=== PATIENT | female | born 1940 | race Caucasian/White ===

== ENCOUNTER 2016-11-29 14:31 | Observation (INO) ==
--- NOTE | 2016-11-29 15:24 | EKG Report ---
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
[2016-11-29] MEDS ORDERED: ASPIRIN 325 MG TABLET PO STA (15:34)
[2016-11-29] MEDS ORDERED: NITROGLYCERIN SL 0.4 MG TABLET SL PRN (15:34)
[2016-11-29] MEDS ORDERED: NITROGLYCERIN 2% OINT 1 INCH/GM PACK TOP STA (15:34)
[2016-11-29] MEDS ORDERED: ONDANSETRON 4 MG/2 ML VIAL IV PRN (15:34)
[2016-11-29] MEDS ORDERED: ENOXAPARIN 100 MG/ML SYRINGE SUBCUT STA (15:34)
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
[2016-11-29 15:50] LABS: Basophils # 0.1 10*3/uL (0.0-0.2); Basophils % 0.9 % (0.0-0.8); Eosinophils # 0.5 10*3/uL (0.0-0.87); Eosinophils % 3.7 % (0.00-10.9); Hematocrit 37.1 VOL% (35.7-47.0); Hemoglobin 12.6 GM/DL (12.0-16.0); Immature Granulocytes % 0.2 %; Immature Granulocytes Absolute 0.03 #; Lymphocytes # 5.1 10*3/uL (1.4-4.0); Mean Corpuscular Hemoglobin 34 PG (27-34); Mean Corpuscular Volume 99.7 FL (87-102); Mean Platelet Volume 11.5 FL (9.6-12.0); Monocytes % 23.6 % (1.7-12.7); Neutrophils # 3.8 10*3/uL (1.4-7.4); Neutrophils % 30.6 % (38.7-73.9); Platelet Count 190 T/CUMM (130-400); Red Blood Count 3.72 MC/CUMM (3.8-5.5); Red Cell Distribution Width 12.9 % (9.3-17.3); White Blood Count 12.5 T/CUMM (4-12)
[2016-11-29 16:01] LABS: PT Patient Result 10.4 SECS; Partial Thromboplastin Time 27.5 SECS (0-40)
[2016-11-29 16:18] LABS: Alanine Aminotransferase 39 U/L (13-56); Alkaline Phosphatase 108 U/L (45-117); Aspartate Amino Transferase 24 U/L (0-37); Bilirubin,Total < 0.39 MG/DL (0.2-1.0); Blood Urea Nitrogen 17 MG/DL (7-18); Glucose 100 MG/DL (74-106); Osmolality,Calculated 282.3 MOS/KG (273-304); Potassium 4.1 MMOL/L (3.5-5.1); Sodium 141 MMOL/L (136-145); Total Protein 6.4 G/DL (6.4-8.3)
--- NOTE | 2016-11-29 16:21 | XRay Report ---
XR chest 2V Indication: Chest pain Comparison: 22 December 2012 Findings: The heart and mediastinum are normal in size and configuration. The pulmonary vascularity is normal in caliber. No lung infiltrates, effusions, pneumothorax or other abnormality is demonstrated. Impression: Normal chest x-ray PROCEDURE INTERPRETED AT [facility] DEPARTMENT OF RADIOLOGY Final Report Signed by: Dr. Ashutosh Camacho
[2016-11-29 16:44] LABS: Eosinophils 1 % (0-10); Lymphocytes 57 % (20-55); Platelet Estimate Normal; Segmented Neutrophils 40 % (50-85); Total Cells Counted 100
[2016-11-29] MEDS ORDERED: ENOXAPARIN 100 MG/ML SYRINGE SUBCUT ONE (17:49)
[2016-11-29] MEDS ORDERED: ASPIRIN 325 MG TABLET ONE (17:49)
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
[2016-11-29] MEDS ORDERED: MAGNESIUM SULF RIDER 4 GM in PREMIX 1 EACH IV PRN (18:17)
[2016-11-29] MEDS ORDERED: MAGNESIUM SULF RIDER 2 GM in PREMIX 1 EACH IV PRN (18:17)
[2016-11-29] MEDS: SODIUM CHLORIDE 0.9% 1,000 ML IV SCH (20:41)
[2016-11-30] MEDS ORDERED: CLORAZEPATE 7.5 MG TABLET PO ONE (00:30)
[2016-11-30] MEDS ORDERED: PRIMIDONE 250 MG TABLET PO ONE (00:30)
[2016-11-30] MEDS ORDERED: GABAPENTIN 600 MG TABLET PO ONE (00:30)
[2016-11-30] MEDS ORDERED: ZONISAMIDE 100 MG CAPSULE PO ONE (00:30)
[2016-11-30] MEDS: SODIUM CHLORIDE 0.9% 1,000 ML IV SCH (04:49)
--- NOTE | 2016-11-30 06:47 | EKG Report ---
Stationary ECG Study 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
[2016-11-30] MEDS ORDERED: SPIRONOLACTONE 25 MG TABLET PO SCH (09:00)
[2016-11-30] MEDS ORDERED: PRIMIDONE 250 MG TABLET PO SCH (09:00)
[2016-11-30] MEDS ORDERED: MAGNESIUM SULF RIDER 2 GM in PREMIX 1 EACH IV PRN (09:08)
[2016-11-30] MEDS ORDERED: POTASSIUM CHLORIDE RIDER 10 MEQ in PREMIX 1 EACH IV PRN (09:08)
[2016-11-30] MEDS ORDERED: diphenhydrAMINE CAP 25 MG CAPSULE PO ONE (09:08)
[2016-11-30] MEDS ORDERED: DIAZEPAM 5 MG TABLET PO ONE (09:08)
[2016-11-30] MEDS ORDERED: VERAPAMIL 5 MG/2 ML VIAL ONE (09:18)
[2016-11-30] MEDS ORDERED: HEPARIN/NACL 0.9% 2 UNITS/ML 1,000 ML IV ONE (09:18)
[2016-11-30] MEDS ORDERED: NITROGLYCERIN DRIP 50 MG/250 ML BOTTLE IV ONE (09:18)
[2016-11-30] MEDS ORDERED: LIDOCAINE 1% 20 ML VIAL ONE (09:18)
[2016-11-30] MEDS ORDERED: HYDROmorphone 2 MG/1 ML VIAL ONE (09:52)
[2016-11-30] MEDS ORDERED: ENOXAPARIN 60 MG/0.6 ML SYRINGE ONE (10:04)
--- NOTE | 2016-11-30 10:24 | Cardiac Catheterization ---
Date of Procedure:: 11/30/16 Procedure: CLINICAL HISTORY: Please see the history and physical. The patient had a syncopal spell and subsequently had some chest pain symptoms. She has known severe aortic stenosis and is now undergoing cardiac catheterization for definitive coronary artery assessment before probable aortic valve replacement. PROCEDURES PERFORMED: 1. Right radial percutaneous arteriotomy 2. Left heart catheterization 3. Resting hemodynamics 4. Left ventriculography. 5. Coronary arteriography 6. Hemoband placement DESCRIPTION OF PROCEDURE: After obtaining informed consent, the patient was taken to the collaborative teacher, prepped and draped in the usual sterile manner. We accessed the right radial artery using modified Seldinger technique in the usual fashion. We placed a 6-English slim sheath without difficulty. We then used a Tig catheter to engage the right coronary and left main coronary arteries to perform angiography in multiple orthogonal views and to perform a ventriculogram and left heart catheterization. There were no problems or complications during the procedure. After removing the catheter, we placed a HemoBand and removed the sheath without difficulty. There were no problems during the case. HEMODYNAMICS: Please see the accompanying data sheet. There is a peak to peak gradient of 60 mmHg which is consistent with severe aortic stenosis. CORONARIES: The left main coronary artery is a large-caliber vessel which bifurcates into the left anterior descending left circumflex was coronary arteries. The left main coronary artery is angiographically free of significant obstructive disease. The left main coronary artery is angiographically free of significant obstructive disease. The left circumflex coronary artery is a large-caliber vessel which gives off a moderate to large first obtuse marginal branch and a moderate size posterior lateral branch. There is a 50% stenosis in the proximal segment of the first obtuse marginal branch. The left anterior descending is a large-caliber vessel which gives off 3 moderate-sized diagonal branches. Left anterior descending coronary artery and its tributaries are angiographically free of significant obstructive disease. The right coronary artery is a moderate caliber vessel which gives off the posterior descending artery and a posterior lateral system. The right coronary artery is angiographically free of significant obstructive disease. LEFT VENTRICULOGRAPHY: Left ventriculogram shows left ventricular ejection fraction of approximately IMPRESSION: 1. There is no significant obstructive disease her coronary arteries at this time. There is a 50% obtuse marginal stenosis but this is a relatively large vessel and this does not appear to be severe enough need revascularization at this time. 2. Severe aortic stenosis. 3. Preserved left ventricular systolic function. PLAN: I think the patient needs an aortic valve replacement. She wants to go home today and make plans to get this done in the near future. She is unsure if she wants to get this done locally or in [place]. She has a sister who lives in [place]. Surgeon / Physician: Sonido Womack - Medications / Follow-up
[2016-11-30] MEDS: CLORAZEPATE 7.5 MG TABLET PO SCH ×2 (11:06→16:41)
[2016-11-30] MEDS: GABAPENTIN 600 MG TABLET PO SCH ×2 (11:07→16:41)
[2016-11-30] MEDS: ZONISAMIDE 100 MG CAPSULE PO SCH ×2 (11:07→16:41)
--- NOTE | 2016-11-30 13:51 | Discharge Summary ---
Hospital Course - Hospital Course Hospital Course: Cardiology addendum Patient seen chart examined and discussed with nurse Sadie Do RN. Patient has patent coronaries preserved LV function and severe a.s. with 60 mmHg gradient. Good right radial pulse. Blood pressure 140/72. Patient will be discharged home today. CPAP mask nightly. Office visit with Dr. Womack scheduled for December 08. She wants to think about her decision to have surgery here or in [place] and be close to her sister. Manager Icu: Dr. Womack SUMMARY Ms. Hooker, 75-year-old female with long history of hypertension, KAYLEE, reported diabetes (noted in Dr. Womack's last note but she is not on medication for her glucose is 100; she is unaware of having diabetes but she is not a good historian). Per echocardiogram in 2016 she has severe aortic stenosis with normal ejection fraction. She presented to [facility] with a chest pain. She subsequently underwent heart catheterization per Dr. Sonido Womack with the following impressions noted: IMPRESSION: 1. There is no significant obstructive disease her coronary arteries at this time. There is a 50% obtuse marginal stenosis but this is a relatively large vessel and this does not appear to be severe enough need revascularization at this time. 2. Severe aortic stenosis. 3. Preserved left ventricular systolic function. PLAN: The patient needs an aortic valve replacement. She wants to go home today and make plans to get this done in the near future. She is unsure if she wants to get this done locally or in [place]. She has a sister who lives in [place]. Post cardiac catheterization patient was transferred back to the telemetry unit in stable condition. Tolerated procedure well without complications. Patient is without complaints of chest pain, heaviness and tightness. Right radial catheterization site is stable without bleeding and hematoma. Right radial pulse 2+. Patient has ambulated around the room without difficulty. Her echocardiogram August 2016, she was noted to have normal ejection fraction with severe aortic stenosis. Patient will most likely benefit from aortic valve replacement. She has requested to be discharged home today while she decides where she would like to have this surgery done. She is unsure if she would like to have this done likely or in [place]. She already has a follow-up appointment with Dr. Womack scheduled December 08. At that time, Dr. Womack we will arrange for valve operation. Patient is anxious for discharge home. Having felt that she has met maximal medical therapy, she will be discharged home in stable condition. Patient already has follow-up appointment with Dr. Womack scheduled for December. She will be discharged home on her preadmission medications. Patient verbalizes understanding of discharge instructions and discharge medications. - Time spent with patient Time with patient DS: Greater than 30 minutes Diagnosis - Discharge Diagnosis (1) Severe aortic stenosis Status: Acute (2) Essential hypertension Status: Chronic (3) Obstructive sleep apnea Status: Chronic (4) Chest pain Status: Resolved Specialty Discharge - Follow Up or Referrals Follow up with: Sonido Womack MD [Physician] - (Patient already has appointment with Dr. Womack December 08. She will keep this appointment.) Discharge Plan - Discharge Data Disposition: Disch To Home/Self Care Condition at Discharge: Stable Discharge Diet: heart healthy, low fat, low cholesterol, low salt diet Activity: resume usual activities as tolerated Hygiene: may shower Weight Bearing at Discharge: weight bear as tolerated Driving: not until seen by doctor Contact your physician if you experience:: fever over 101, Difficulty voiding, Redness or swelling, Nausea/Vomiting, Shortness of breath, Bleeding, pain uncontrolled by pain medications - Discharge Medications Continue Clorazepate [Tranxene] 7.5 mg PO TID Zonisamide [Zonegran] 100 mg PO TID Cholecalciferol (Vitamin D3) [Vitamin D3] 1,000 unit PO DAILY Spironolactone [Aldactone] 25 mg PO DAILY Primidone 250 mg PO BID Aspirin EC Tab 325 mg PO BEDTIME Gabapentin 600 mg PO TID Discontinued amLODIPine [Norvasc] 5 mg PO DAILY Lisinopril 10 mg PO DAILY Diclofenac Sodium Tab [Voltaren] 75 mg PO BID - Follow Up or Referral Follow Up: Sonido Womack MD [Physician] - (Patient already has appointment with Dr. Womack December 08. She will keep this appointment.) - Forms/Instructions Exam - Constitutional Vitals: Period Temp Pulse Resp BP Sys/Willis Pulse Ox Last 24 Hr 96.3 F-98.1 F 54-77 16-20 99-140/50-101 94-98 Exam: General: Appears well with no apparent distress. Pleasant and cooperative. Appears comfortable. Obese. HEENT: PERRL, normocephalic, atraumatic. Mucous membranes moist. No jaundice noted. Conjunctiva moist and clear, sclerae anicteric Neck: No JVD/HJR, no thyromegaly or lymphadenopathy noted. No carotid bruit appreciated Cardiac: Regular rate and rhythm. Grade 3/6 systolic murmur. Lungs: Clear to auscultation without accessory muscle use to assist the respiratory pattern. Abdomen: Soft, bowel sounds normoactive. Nontender and nondistended. No abdominal bruit or thrill noted. No masses noted. Extremities: No clubbing, cyanosis noted. No edema noted. Upper extremity pulses 2+. Lower extremity pulses 2+. Capillary refill less than 3 seconds. Right radial cath site without bleeding or hematoma. Right radial pulse 2+. Skin: No unusual lesions or rashes. No skin breakdown appreciated. Neuro: Awake, alert and oriented 3. Moves all extremities well without hemiparesis or paralysis. No essential tremor is appreciated. Discharge Results Procedures and tests throughout hospitalization: Pending Orders 11/30/16 09:37 CL heart Routine Labs on day of discharge: Labs from last 24 hours 11/29/16 11/29/16 11/29/16 21:09 18:19 15:36 WBC RBC Hgb Hct MCV MCH MCHC RDW Plt Count MPV Neut % (Auto) Lymph % (Auto) [place] % (Auto) Eos % (Auto) Baso % (Auto) Neut # (Auto) Lymph # (Auto) [place] # (Auto) Eos # (Auto) Baso # (Auto) Total Counted Immature Gran % Nucleated RBC % Immature Gran # Segmented Neutrophils Lymphocytes Monocytes Eosinophils Nucleated RBCs # Platelet Estimate INR PT Patient/Control Mix Circ Anticoag PTT Sodium Potassium Chloride Carbon Dioxide Anion Gap BUN Creatinine GFR Calculation BUN/Creatinine Ratio Glucose Calculated Osmolality Calcium Total Bilirubin AST ALT Alkaline Phosphatase Troponin I < 0.015 < 0.015 < 0.015 Total Protein Albumin Globulin Albumin/Globulin Ratio Lipase 11/29/16 11/29/16 11/29/16 15:36 15:36 15:36 WBC 12.5 H RBC 3.72 L Hgb 12.6 Hct 37.1 MCV 99.7 MCH 34 MCHC 34.0 RDW 12.9 Plt Count 190 MPV 11.5 Neut % (Auto) 30.6 L Lymph % (Auto) 41.0 [place] % (Auto) 23.6 H Eos % (Auto) 3.7 Baso % (Auto) 0.9 H Neut # (Auto) 3.8 Lymph # (Auto) 5.1 H [place] # (Auto) 3.0 H Eos # (Auto) 0.5 Baso # (Auto) 0.1 Total Counted 100 Immature Gran % 0.2 Nucleated RBC % 0.0 Immature Gran # 0.03 Segmented Neutrophils 40 L Lymphocytes 57 H Monocytes 2 Eosinophils 1 Nucleated RBCs # 0.00 Platelet Estimate Normal INR 1.0 PT Patient/Control Mix 10.4 Circ Anticoag PTT 27.5 Sodium 141 Potassium 4.1 Chloride 109 H Carbon Dioxide 24 Anion Gap 12.1 BUN 17 Creatinine 0.70 GFR Calculation 99 BUN/Creatinine Ratio 24.00 H Glucose 100 Calculated Osmolality 282.3 Calcium 9.0 Total Bilirubin < 0.39 AST 24 ALT 39 Alkaline Phosphatase 108 Troponin I Total Protein 6.4 Albumin 4.0 Globulin 2.4 Albumin/Globulin Ratio 1.6 Lipase 145.0 - Imaging and Cardiology Cardiology Procedure: report reviewed by me DS: Provider Date of admission: 11/29/16 17:33 Primary care physician: . No PCP Attending physician on admission: Sonido Womack MD Discharging clinician: Sadie Do NP Expected date of discharge: 11/30/16
[2016-11-30 16:40] VITALS: BP 114/40
== END 2016-11-30 16:42 | disposition home or self-care (01) ==
LOC: N.ED 14:31 → N.EDINP 14:31 → N.TELEN 18:00
PROVIDERS: ADMIT Internal Medicine Cardiovascular Disease; ATTEND Internal Medicine Cardiovascular Disease
PROC: CLCCHCL (ICD-10-PCS; 2016-11-30 10:15)

== ENCOUNTER 2018-01-05 13:19 | Observation (INO) ==
[2018-01-05] MEDS ORDERED: NITROGLYCERIN 2% OINT 1 INCH/GM PACK TOP STA (13:56)
[2018-01-05] MEDS ORDERED: ASPIRIN 325 MG TABLET PO STA (13:56)
[2018-01-05 14:18] LABS: Basophils # 0.1 10*3/uL (0.0-0.2); Eosinophils # 0.3 10*3/uL (0.0-0.87); Eosinophils % 2.6 % (0.00-10.9); Hematocrit 39.5 VOL% (35.7-47.0); Hemoglobin 13.1 GM/DL (12.0-16.0); Immature Granulocytes % 0.2 %; Immature Granulocytes Absolute 0.02 #; Lymphocytes # 6.7 10*3/uL (1.4-4.0); Lymphocytes % 59.1 % (21.3-54.2); Mean Corpuscular HGB Conc 33.2 GM/DL (32-36); Mean Corpuscular Hemoglobin 33 PG (27-34); Mean Platelet Volume 10.6 FL (9.6-12.0); Monocytes # 0.6 10*3/uL (0.11-0.8); Monocytes % 5.7 % (1.7-12.7); Neutrophils # 3.6 10*3/uL (1.4-7.4); Neutrophils % 31.4 % (38.7-73.9); Platelet Count 240 T/CUMM (130-400); Red Blood Count 3.95 MC/CUMM (3.8-5.5); Red Cell Distribution Width 12.5 % (9.3-17.3); White Blood Count 11.3 T/CUMM (4-12)
[2018-01-05 14:28] LABS: INR 0.9; Partial Thromboplastin Time 25.4 SECS (0-40)
[2018-01-05 14:42] LABS: Alanine Aminotransferase 29 U/L (13-56); Albumin 3.9 G/DL (3.4-5.0); Alkaline Phosphatase 131 U/L (45-117); Aspartate Amino Transferase 15 U/L (0-37); Bilirubin,Total < 0.39 MG/DL (0.2-1.0); Blood Urea Nitrogen 20 MG/DL (7-18); Calcium 8.7 MG/DL (8.5-10.1); Glucose 129 MG/DL (74-106); Osmolality,Calculated 285.3 MOS/KG (273-304); Potassium 4.3 MMOL/L (3.5-5.1); Sodium 141 MMOL/L (136-145); Total Protein 6.6 G/DL (6.4-8.3)
[2018-01-05 14:48] LABS: Eosinophils 2 % (0-10); Lymphocytes 58 % (20-55); Segmented Neutrophils 35 % (50-85); Total Cells Counted 100
[2018-01-05 14:49] LABS: Platelet Estimate Adequate; Reactive Lymphocytes Few
[2018-01-05] MEDS ORDERED: BISACODYL 5 MG TABLET PO PRN (16:18)
[2018-01-05] MEDS ORDERED: MAGNESIUM SULF RIDER 2 GM in PREMIX 1 EACH IV PRN ×2 (16:18→16:57)
[2018-01-05] MEDS ORDERED: PROMETHAZINE 25 MG TABLET PO PRN (16:18)
[2018-01-05] MEDS ORDERED: guaiFENesin/DM ER 600-30 MG TABLET PO PRN (16:18)
[2018-01-05] MEDS ORDERED: diphenhydrAMINE CAP 25 MG CAPSULE PO PRN (16:18)
[2018-01-05] MEDS ORDERED: DOCUSATE SODIUM 100 MG CAPSULE PO PRN (16:18)
[2018-01-05] MEDS ORDERED: ONDANSETRON 4 MG/2 ML VIAL IV PRN (16:18)
[2018-01-05] MEDS ORDERED: ZALEPLON 5 MG CAPSULE PO PRN (16:18)
[2018-01-05] MEDS ORDERED: POTASSIUM CHLORIDE 20 MEQ TABLET PO PRN (16:18)
[2018-01-05] MEDS ORDERED: MAGNESIUM SULF RIDER 4 GM in PREMIX 1 EACH IV PRN ×2 (16:18→16:57)
[2018-01-05] MEDS ORDERED: LACTULOSE 20 GM/30 ML UDCUP PO PRN (16:18)
[2018-01-05] MEDS ORDERED: KETOROLAC 30 MG/1 ML VIAL IV STA (16:49)
[2018-01-05] MEDS ORDERED: GLUCAGON 1 MG VIAL IM PRN (16:57)
[2018-01-05] MEDS ORDERED: CLORAZEPATE 7.5 MG TABLET PO PRN (16:57)
[2018-01-05] MEDS ORDERED: hydrALAZINE 20 MG/1 ML VIAL IV PRN (16:57)
[2018-01-05] MEDS ORDERED: DEXTROSE 50% 25 GM/50 ML VIAL IV PRN (16:57)
[2018-01-05] MEDS ORDERED: ENOXAPARIN 40 MG/0.4 ML SYRINGE SUBCUT SCH (17:00)
[2018-01-05] MEDS: INSULIN LISPRO 100 UNIT/ML SUBCUT SCH ×2 (18:34→21:51)
[2018-01-05] MEDS: SODIUM CHLORIDE 0.9% 1,000 ML IV SCH (18:54)
[2018-01-05 19:03] LABS: Amorphous Crystals,Urine Few /HPF (Few); Apearance,Urine CLOUDY (Clear); Bilirubin,Urine Negative (Negative); Blood, Urine Negative (Negative); Glucose,Urine (UA) Negative (Negative); Ketones,Urine Negative (Negative); Mucus,Urine Occasional /LPF (Occasional); Nitrite,Urine Negative (Negative); Protein,Urine Negative; RBC,Urine 12 /HPF (0-4); Squamous Epithelial Cell,Urine Occasional /HPF (0-10); Urine Color Yellow (Yellow); Urine Specific Gravity 1.012 (1.001-1.035); Urine Urobilinogen < 2.0 EU/DL (0.2-1.0); WBC,Urine 1 /HPF (0-6)
[2018-01-05] MEDS ORDERED: ASPIRIN EC 325 MG TABLET PO SCH (21:00)
[2018-01-05] MEDS: PRIMIDONE 250 MG TABLET PO SCH (21:50)
[2018-01-05] MEDS: ZONISAMIDE 100 MG CAPSULE PO SCH (21:50)
[2018-01-05] MEDS: GABAPENTIN 600 MG TABLET PO SCH (21:50)
[2018-01-05] MEDS: INSULIN REGULAR 100 UNIT/ML SUBCUT SCH (21:51)
[2018-01-05] MEDS: DICLOFENAC SODIUM 75 MG TABLET PO SCH (22:04)
[2018-01-06 02:57] LABS: Basophils # 0.1 10*3/uL (0.0-0.2); Basophils % 0.9 % (0.0-0.8); Eosinophils # 0.3 10*3/uL (0.0-0.87); Eosinophils % 2.9 % (0.00-10.9); Hematocrit 36.6 VOL% (35.7-47.0); Hemoglobin 11.7 GM/DL (12.0-16.0); Immature Granulocytes % 0.3 %; Immature Granulocytes Absolute 0.03 #; Lymphocytes # 7.2 10*3/uL (1.4-4.0); Lymphocytes % 63.9 % (21.3-54.2); Mean Corpuscular Hemoglobin 32 PG (27-34); Mean Corpuscular Volume 101.4 FL (87-102); Mean Platelet Volume 10.9 FL (9.6-12.0); Monocytes # 0.7 10*3/uL (0.11-0.8); Monocytes % 6.1 % (1.7-12.7); Neutrophils # 2.9 10*3/uL (1.4-7.4); Neutrophils % 25.9 % (38.7-73.9); Platelet Count 228 T/CUMM (130-400); Red Blood Count 3.61 MC/CUMM (3.8-5.5); Red Cell Distribution Width 12.5 % (9.3-17.3); White Blood Count 11.2 T/CUMM (4-12)
[2018-01-06] MEDS: SODIUM CHLORIDE 0.9% 1,000 ML IV SCH (03:12)
[2018-01-06] MEDS ORDERED: KETOROLAC 30 MG/1 ML VIAL IV ONE ×2 (03:30→15:08)
[2018-01-06 03:37] LABS: Troponin I 0.016 NG/ML (0.00-0.045)
[2018-01-06 03:44] LABS: Albumin 3.4 G/DL (3.4-5.0); Bilirubin,Total 0.4 MG/DL (0.2-1.0); Calcium 8.5 MG/DL (8.5-10.1); Osmolality,Calculated 281.4 MOS/KG (273-304); Potassium 3.8 MMOL/L (3.5-5.1); Risk Ratio 5.14; Thyroid Stimulating Hormone 2.48 uIU/ml (0.358-3.74); VLDL CHOLESTEROL 55.2 MG/DL
[2018-01-06 05:03] LABS: Band Neutrophils 1 % (0-10); Eosinophils 7 % (0-10); Lymphocytes 52 % (20-55); Segmented Neutrophils 37 % (50-85); Total Cells Counted 100
[2018-01-06 05:04] LABS: Platelet Estimate Normal; Reactive Lymphocytes 1+
[2018-01-06] MEDS ORDERED: SPIRONOLACTONE 25 MG TABLET PO SCH (09:00)
[2018-01-06] MEDS ORDERED: CHOLECALCIFEROL 1,000 UNIT TABLET PO SCH (09:00)
[2018-01-06] MEDS ORDERED: CLOPIDOGREL 75 MG TABLET PO SCH (09:00)
[2018-01-06] MEDS ORDERED: DULoxetine 30 MG CAPSULE PO SCH (09:00)
[2018-01-06] MEDS ORDERED: PANTOPRAZOLE 40 MG TABLET PO SCH (09:00)
[2018-01-06] MEDS: DICLOFENAC SODIUM 75 MG TABLET PO SCH (09:06)
[2018-01-06] MEDS: GABAPENTIN 600 MG TABLET PO SCH ×2 (09:06→15:04)
[2018-01-06] MEDS: PRIMIDONE 250 MG TABLET PO SCH (09:06)
[2018-01-06] MEDS: ZONISAMIDE 100 MG CAPSULE PO SCH ×2 (09:06→15:04)
[2018-01-06] MEDS: INSULIN LISPRO 100 UNIT/ML SUBCUT SCH ×2 (10:15→13:33)
[2018-01-06] MEDS: INSULIN REGULAR 100 UNIT/ML SUBCUT SCH ×2 (10:19→13:33)
[2018-01-06 16:21] VITALS: BP 158/88
== END 2018-01-06 18:55 | disposition home or self-care (01) ==
LOC: N.EDINP 13:19 → N.ED 13:19 → N.2W 17:00 → N.TELES 17:12 → N.TELEN 17:12 → N.TELES 18:07
PROVIDERS: ADMIT Internal Medicine Cardiovascular Disease; ATTEND Internal Medicine Cardiovascular Disease

== ENCOUNTER 2021-01-30 09:31 | Inpatient (IN) ==
[2021-01-30 10:27] LABS: Basophils # 0.1 10*3/uL (0.0-0.2); Basophils % 0.5 % (0.0-0.8); Eosinophils # 0.2 10*3/uL (0.0-0.87); Hematocrit 37.2 VOL% (35.7-47.0); Hemoglobin 12.1 GM/DL (12.0-16.0); Immature Granulocytes % 0.3 %; Immature Granulocytes Absolute 0.06 #; Lymphocytes # 13.1 10*3/uL (1.4-4.0); Lymphocytes % 56.9 % (21.3-54.2); Mean Corpuscular HGB Conc 32.5 GM/DL (32-36); Mean Corpuscular Volume 102.8 FL (87-102); Monocytes % 11.6 % (1.7-12.7); Neutrophils % 29.7 % (38.7-73.9); Platelet Count 236 T/CUMM (130-400); Red Blood Count 3.62 MC/CUMM (3.8-5.5); Red Cell Distribution Width 13.1 % (9.3-17.3)
[2021-01-30 10:43] LABS: Bacteria,Urine Occasional /HPF (Few); Bilirubin,Urine Negative (Negative); Blood, Urine Negative (Negative); Glucose,Urine (UA) Negative (Negative); Hyaline Casts,Urine 10 /LPF (0-3); Ketones,Urine Negative (Negative); Mucus,Urine Occasional /LPF (Occasional); Nitrite,Urine Negative (Negative); Protein,Urine Negative; RBC,Urine 2 /HPF (0-4); Urine Appearance CLEAR (Clear); Urine Color Yellow (Yellow); Urine Specific Gravity 1.023 (1.001-1.035); Urine Urobilinogen < 2.0 EU/DL (0.2-1.0)
[2021-01-30 10:56] LABS: Alanine Aminotransferase 22 U/L (13-56); Albumin 3.7 G/DL (3.4-5.0); Alkaline Phosphatase 88 U/L (45-117); Aspartate Amino Transferase 14 U/L (0-37); Bilirubin,Total < 0.39 MG/DL (0.20-1.00); Blood Urea Nitrogen 20 MG/DL (7-18); Calcium 8.6 MG/DL (8.5-10.1); Carbon Dioxide 27 MMOL/L (21-32); Estimated Glom Filtration Rate 49 ML/MIN; Glucose 144 MG/DL (74-106); Osmolality,Calculated 282.5 MOS/KG (273-304); Potassium 3.5 MMOL/L (3.5-5.1); Sodium 139 MMOL/L (136-145); Total Protein 6.8 G/DL (6.4-8.2)
[2021-01-30 10:57] LABS: Eosinophils 2 % (0-10); Lymphocytes 71 % (20-55); Platelet Estimate Adequate; Segmented Neutrophils 24 % (50-85); Total Cells Counted 100
[2021-01-30 10:58] LABS: Atypical Lymphocytes Few
[2021-01-30] MEDS ORDERED: DEXTROSE 50% 25 GM/50 ML VIAL IV PRN (11:20)
[2021-01-30] MEDS ORDERED: GLUCAGON 1 MG VIAL IM PRN (11:20)
[2021-01-30] MEDS ORDERED: BISACODYL 5 MG TABLET PO PRN (11:20)
[2021-01-30] MEDS ORDERED: MORPHINE 2 MG/1 ML SYRINGE IV PRN (11:22)
[2021-01-30 11:30] LABS: PT Patient Result 10.9 SECS (10.5-12.0); Partial Thromboplastin Time 20.7 SECS (23.9-33.8)
[2021-01-30] MEDS ORDERED: ENOXAPARIN 40 MG/0.4 ML SYRINGE SUBCUT SCH (12:00)
[2021-01-30] MEDS ORDERED: INFLUENZA VIRUS VACCINE 0.5 ML SYRINGE IM ONE (14:36)
[2021-01-30] MEDS ORDERED: POTASSIUM CHLORIDE 20 MEQ TABLET PO ONE (15:00)
[2021-01-30] MEDS: INSULIN LISPRO 100 UNIT/ML SUBCUT SCH ×3 (15:05→21:53)
[2021-01-30] MEDS ORDERED: oxyCODONE/ACETAMINOPHEN 5-325 MG TABLET PO PRN ×2 (15:06)
[2021-01-30] MEDS: GABAPENTIN 600 MG TABLET PO SCH ×2 (15:08→20:12)
[2021-01-30] MEDS: ZONISAMIDE 100 MG CAPSULE PO SCH ×2 (15:09→20:12)
[2021-01-30] MEDS: SODIUM CHLORIDE 0.9% 1,000 ML IV SCH (15:19)
[2021-01-30] MEDS: ASCORBIC ACID 500 MG TABLET PO SCH (20:11)
[2021-01-30] MEDS: PRIMIDONE 250 MG TABLET PO SCH (20:11)
[2021-01-30] MEDS: DOCUSATE SODIUM 100 MG CAPSULE PO SCH (20:12)
[2021-01-31] MEDS: SODIUM CHLORIDE 0.9% 1,000 ML IV SCH (02:51)
[2021-01-31 05:56] LABS: Basophils # 0.1 10*3/uL (0.0-0.2); Basophils % 0.5 % (0.0-0.8); Eosinophils # 0.4 10*3/uL (0.0-0.87); Eosinophils % 1.9 % (0.00-10.9); Hematocrit 34.8 VOL% (35.7-47.0); Hemoglobin 11.3 GM/DL (12.0-16.0); Immature Granulocytes % 0.3 %; Immature Granulocytes Absolute 0.06 #; Lymphocytes # 11.1 10*3/uL (1.4-4.0); Lymphocytes % 55.3 % (21.3-54.2); Mean Corpuscular HGB Conc 32.5 GM/DL (32-36); Mean Corpuscular Volume 102.4 FL (87-102); Mean Platelet Volume 11.2 FL (9.6-12.0); Monocytes % 15.2 % (1.7-12.7); Neutrophils % 26.8 % (38.7-73.9); Platelet Count 227 T/CUMM (130-400); White Blood Count 20.1 T/CUMM (4-12)
[2021-01-31] MEDS ORDERED: ceFAZolin 2,000 MG/50 ML DUPLEX IV ONE (06:00)
[2021-01-31 06:23] LABS: Calcium 8.4 MG/DL (8.5-10.1); Osmolality,Calculated 279.5 MOS/KG (273-304); Potassium 3.3 MMOL/L (3.5-5.1)
[2021-01-31 06:36] LABS: Atypical Lymphocytes Few; Eosinophils 2 % (0-10); Hypochromasia 1+; Lymphocytes 62 % (20-55); Segmented Neutrophils 35 % (50-85); Total Cells Counted 100
[2021-01-31 06:37] LABS: Microcytosis 1+; Platelet Estimate Normal
[2021-01-31] MEDS: INSULIN LISPRO 100 UNIT/ML SUBCUT SCH ×4 (06:39→20:19)
[2021-01-31] MEDS ORDERED: fentaNYL 250 MCG/5 ML VIAL ONE (06:42)
[2021-01-31] MEDS ORDERED: ROCURONIUM 50 MG/5 ML VIAL IV ONE (07:39)
[2021-01-31] MEDS ORDERED: LIDOCAINE 2% 5 ML VIAL ONE (07:39)
[2021-01-31] MEDS ORDERED: SEVOFLURANE 1 UNIT/15 MINUTE INH ONE ×4 (07:39→08:29)
[2021-01-31] MEDS ORDERED: LACTATED RINGERS 1,000 ML IV ONE (07:39)
[2021-01-31] MEDS ORDERED: propofoL 200 MG/20 ML VIAL IV ONE (07:39)
[2021-01-31] MEDS ORDERED: ONDANSETRON 4 MG/2 ML VIAL ONE (07:39)
[2021-01-31] MEDS ORDERED: PHENYLEPHRINE 1 MG/10 ML SYRINGE IV ONE (07:39)
[2021-01-31] MEDS ORDERED: BACITRACIN OINT 0.9 GM PACK TOP ONE (08:26)
[2021-01-31] MEDS ORDERED: ONDANSETRON 4 MG/2 ML VIAL IV PRN (08:47)
[2021-01-31] MEDS ORDERED: MAGNESIUM HYDROXIDE SUSP 30 ML UDCUP PO PRN (08:47)
[2021-01-31] MEDS ORDERED: BUPIVACAINE MPF 0.25% 30 ML VIAL ONE (08:54)
[2021-01-31] MEDS ORDERED: LIDOCAINE 1% 5 ML VIAL ONE (09:00)
[2021-01-31] MEDS: DOCUSATE SODIUM 100 MG CAPSULE PO SCH ×2 (10:05→20:19)
[2021-01-31] MEDS: ASCORBIC ACID 500 MG TABLET PO SCH ×2 (10:05→20:19)
[2021-01-31] MEDS: GABAPENTIN 600 MG TABLET PO SCH ×3 (10:05→20:19)
[2021-01-31] MEDS: ZONISAMIDE 100 MG CAPSULE PO SCH ×3 (10:05→20:19)
[2021-01-31] MEDS: CHOLECALCIFEROL 1,000 UNIT TABLET PO SCH (10:05)
[2021-01-31] MEDS: PRIMIDONE 250 MG TABLET PO SCH ×2 (10:05→20:19)
[2021-01-31] MEDS: POTASSIUM CHLORIDE INJ 20 MEQ in LACTATED RINGERS 1,000 ML IV SCH (10:11)
[2021-01-31] MEDS: ceFAZolin 2,000 MG/50 ML DUPLEX IV SCH ×2 (13:28→20:18)
[2021-01-31] MEDS: CLORAZEPATE 3.75 MG TABLET PO PRN (20:29)
[2021-02-01] MEDS: POTASSIUM CHLORIDE INJ 20 MEQ in LACTATED RINGERS 1,000 ML IV SCH ×2 (01:08→15:04)
[2021-02-01] MEDS: FONDAPARINUX 2.5 MG/0.5 ML SYRINGE SUBCUT SCH (06:01)
[2021-02-01 06:59] LABS: Basophils # 0.1 10*3/uL (0.0-0.2); Basophils % 0.3 % (0.0-0.8); Eosinophils # 0.1 10*3/uL (0.0-0.87); Eosinophils % 0.5 % (0.00-10.9); Hematocrit 30.1 VOL% (35.7-47.0); Hemoglobin 10.1 GM/DL (12.0-16.0); Immature Granulocytes % 0.4 %; Immature Granulocytes Absolute 0.08 #; Lymphocytes # 10.4 10*3/uL (1.4-4.0); Lymphocytes % 47.8 % (21.3-54.2); Mean Corpuscular HGB Conc 33.6 GM/DL (32-36); Mean Corpuscular Volume 102.7 FL (87-102); Mean Platelet Volume 11.1 FL (9.6-12.0); Monocytes % 19.9 % (1.7-12.7); Neutrophils % 31.1 % (38.7-73.9); Platelet Count 205 T/CUMM (130-400); Red Blood Count 2.93 MC/CUMM (3.8-5.5); Red Cell Distribution Width 12.9 % (9.3-17.3); White Blood Count 21.8 T/CUMM (4-12)
[2021-02-01 07:12] LABS: Calcium 8.3 MG/DL (8.5-10.1); Osmolality,Calculated 283.1 MOS/KG (273-304); Potassium 3.4 MMOL/L (3.5-5.1)
[2021-02-01] MEDS: INSULIN LISPRO 100 UNIT/ML SUBCUT SCH ×4 (07:16→21:21)
[2021-02-01 07:17] LABS: Risk Ratio 3.27; VLDL Cholesterol 28.8 MG/DL
[2021-02-01 07:59] LABS: Band Neutrophils 10 % (0-10); Lymphocytes 46 % (20-55); Platelet Estimate Normal; Segmented Neutrophils 33 % (50-85); Smudge Cells 1+; Total Cells Counted 100
[2021-02-01 08:00] LABS: Anisocytosis 1+; Atypical Lymphocytes Few
[2021-02-01] MEDS: POTASSIUM CHLORIDE 20 MEQ TABLET PO SCH (09:34)
[2021-02-01] MEDS: GABAPENTIN 600 MG TABLET PO SCH ×3 (09:34→21:33)
[2021-02-01] MEDS: PRIMIDONE 250 MG TABLET PO SCH ×2 (09:34→21:34)
[2021-02-01] MEDS: DOCUSATE SODIUM 100 MG CAPSULE PO SCH ×2 (09:34→21:34)
[2021-02-01] MEDS: CHOLECALCIFEROL 1,000 UNIT TABLET PO SCH (09:35)
[2021-02-01] MEDS: PANTOPRAZOLE 40 MG TABLET PO SCH (09:35)
[2021-02-01] MEDS: ZONISAMIDE 100 MG CAPSULE PO SCH ×3 (09:35→21:35)
[2021-02-01] MEDS: ASCORBIC ACID 500 MG TABLET PO SCH ×2 (09:35→21:34)
[2021-02-01] MEDS: ceFAZolin 2,000 MG/50 ML DUPLEX IV SCH ×2 (13:57→21:31)
[2021-02-01] MEDS: CLORAZEPATE 3.75 MG TABLET PO PRN (21:33)
[2021-02-02] MEDS: FONDAPARINUX 2.5 MG/0.5 ML SYRINGE SUBCUT SCH (05:54)
[2021-02-02] MEDS: POTASSIUM CHLORIDE INJ 20 MEQ in LACTATED RINGERS 1,000 ML IV SCH (06:07)
[2021-02-02] MEDS: ceFAZolin 2,000 MG/50 ML DUPLEX IV SCH ×3 (06:09→21:19)
[2021-02-02 06:30] LABS: Basophils # 0.1 10*3/uL (0.0-0.2); Basophils % 0.3 % (0.0-0.8); Eosinophils # 0.3 10*3/uL (0.0-0.87); Eosinophils % 1.5 % (0.00-10.9); Hematocrit 29.2 VOL% (35.7-47.0); Hemoglobin 9.6 GM/DL (12.0-16.0); Immature Granulocytes % 0.3 %; Immature Granulocytes Absolute 0.07 #; Lymphocytes # 11.2 10*3/uL (1.4-4.0); Mean Corpuscular HGB Conc 32.9 GM/DL (32-36); Mean Corpuscular Volume 103.5 FL (87-102); Mean Platelet Volume 11.1 FL (9.6-12.0); Monocytes % 17.9 % (1.7-12.7); Platelet Count 206 T/CUMM (130-400); Red Blood Count 2.82 MC/CUMM (3.8-5.5)
[2021-02-02 06:44] LABS: Calcium 8.6 MG/DL (8.5-10.1); Osmolality,Calculated 281.3 MOS/KG (273-304); Potassium 3.7 MMOL/L (3.5-5.1)
[2021-02-02 07:32] LABS: Band Neutrophils 1 % (0-10); Lymphocytes 45 % (20-55); Segmented Neutrophils 40 % (50-85); Total Cells Counted 100
[2021-02-02 07:33] LABS: Hypochromasia 1+; Platelet Estimate Normal; Reactive Lymphocytes 2+
[2021-02-02 07:34] LABS: Smudge Cells Few
[2021-02-02] MEDS: GABAPENTIN 600 MG TABLET PO SCH ×3 (08:59→21:17)
[2021-02-02] MEDS: CHOLECALCIFEROL 1,000 UNIT TABLET PO SCH (08:59)
[2021-02-02] MEDS: INSULIN LISPRO 100 UNIT/ML SUBCUT SCH ×4 (09:00→21:19)
[2021-02-02] MEDS: PRIMIDONE 250 MG TABLET PO SCH ×2 (09:00→21:17)
[2021-02-02] MEDS: ZONISAMIDE 100 MG CAPSULE PO SCH ×3 (09:00→21:17)
[2021-02-02] MEDS: PANTOPRAZOLE 40 MG TABLET PO SCH (09:00)
[2021-02-02] MEDS: ASCORBIC ACID 500 MG TABLET PO SCH ×2 (09:00→21:17)
[2021-02-02] MEDS: DOCUSATE SODIUM 100 MG CAPSULE PO SCH ×2 (09:00→21:17)
[2021-02-02] MEDS: POTASSIUM CHLORIDE 20 MEQ TABLET PO SCH (09:00)
[2021-02-02] MEDS: CLORAZEPATE 3.75 MG TABLET PO PRN ×2 (09:31→21:16)
[2021-02-03 03:53] LABS: Basophils # 0.1 10*3/uL (0.0-0.2); Basophils % 0.3 % (0.0-0.8); Eosinophils # 0.6 10*3/uL (0.0-0.87); Eosinophils % 2.6 % (0.00-10.9); Hemoglobin 9.4 GM/DL (12.0-16.0); Immature Granulocytes % 0.2 %; Immature Granulocytes Absolute 0.05 #; Lymphocytes % 52.4 % (21.3-54.2); Mean Corpuscular HGB Conc 32.4 GM/DL (32-36); Mean Corpuscular Volume 105.8 FL (87-102); Mean Platelet Volume 10.9 FL (9.6-12.0); Neutrophils % 24.5 % (38.7-73.9); Platelet Count 220 T/CUMM (130-400); Red Blood Count 2.74 MC/CUMM (3.8-5.5); Red Cell Distribution Width 13.3 % (9.3-17.3); White Blood Count 22.9 T/CUMM (4-12)
[2021-02-03 04:16] LABS: Calcium 8.4 MG/DL (8.5-10.1); Osmolality,Calculated 282.3 MOS/KG (273-304)
[2021-02-03 04:25] LABS: Atypical Lymphocytes Few; Eosinophils 4 % (0-10); Hypochromasia 1+; Lymphocytes 66 % (20-55); Microcytosis 1+; Platelet Estimate Adequate; Segmented Neutrophils 28 % (50-85); Total Cells Counted 100
[2021-02-03] MEDS: ceFAZolin 2,000 MG/50 ML DUPLEX IV SCH ×3 (05:36→21:10)
[2021-02-03] MEDS: FONDAPARINUX 2.5 MG/0.5 ML SYRINGE SUBCUT SCH (05:37)
[2021-02-03] MEDS: INSULIN LISPRO 100 UNIT/ML SUBCUT SCH ×4 (07:53→21:09)
[2021-02-03] MEDS: CHOLECALCIFEROL 1,000 UNIT TABLET PO SCH (09:45)
[2021-02-03] MEDS: POTASSIUM CHLORIDE 20 MEQ TABLET PO SCH (09:45)
[2021-02-03] MEDS: ZONISAMIDE 100 MG CAPSULE PO SCH ×3 (09:45→21:09)
[2021-02-03] MEDS: ASCORBIC ACID 500 MG TABLET PO SCH ×2 (09:45→21:09)
[2021-02-03] MEDS: DOCUSATE SODIUM 100 MG CAPSULE PO SCH ×2 (09:45→21:09)
[2021-02-03] MEDS: PRIMIDONE 250 MG TABLET PO SCH ×2 (09:45→21:09)
[2021-02-03] MEDS: PANTOPRAZOLE 40 MG TABLET PO SCH (09:45)
[2021-02-03] MEDS: GABAPENTIN 600 MG TABLET PO SCH ×3 (09:46→21:09)
[2021-02-03] MEDS ORDERED: SODIUM CHLORIDE 0.9% 1,000 ML IV SCH (16:30)
[2021-02-04] MEDS: ceFAZolin 2,000 MG/50 ML DUPLEX IV SCH ×3 (05:37→20:55)
[2021-02-04] MEDS: FONDAPARINUX 2.5 MG/0.5 ML SYRINGE SUBCUT SCH (05:40)
[2021-02-04 06:58] LABS: Basophils # 0.1 10*3/uL (0.0-0.2); Basophils % 0.4 % (0.0-0.8); Eosinophils # 0.7 10*3/uL (0.0-0.87); Eosinophils % 2.4 % (0.00-10.9); Hematocrit 31.6 VOL% (35.7-47.0); Hemoglobin 10.2 GM/DL (12.0-16.0); Immature Granulocytes % 0.4 %; Lymphocytes # 14.9 10*3/uL (1.4-4.0); Lymphocytes % 53.5 % (21.3-54.2); Mean Corpuscular HGB Conc 32.3 GM/DL (32-36); Mean Corpuscular Volume 104.6 FL (87-102); Mean Platelet Volume 10.3 FL (9.6-12.0); Neutrophils % 31.3 % (38.7-73.9); Platelet Count 306 T/CUMM (130-400); Red Blood Count 3.02 MC/CUMM (3.8-5.5); Red Cell Distribution Width 13.4 % (9.3-17.3); White Blood Count 27.9 T/CUMM (4-12)
[2021-02-04 07:22] LABS: Atypical Lymphocytes Few; Eosinophils 2 % (0-10); Hypochromasia 1+; Lymphocytes 53 % (20-55); Microcytosis 1+; Platelet Estimate Adequate; Segmented Neutrophils 42 % (50-85); Total Cells Counted 100
[2021-02-04 07:34] LABS: Albumin 3.1 G/DL (3.4-5.0); Bilirubin,Total 0.6 MG/DL (0.20-1.00); Calcium 9.1 MG/DL (8.5-10.1); Osmolality,Calculated 282.4 MOS/KG (273-304); Potassium 4.1 MMOL/L (3.5-5.1); Total Protein 6.6 G/DL (6.4-8.2)
[2021-02-04] MEDS ORDERED: ETOMIDATE 20 MG/10 ML VIAL IV ONE (09:42)
[2021-02-04] MEDS ORDERED: LIDOCAINE 2% 5 ML VIAL ONE (09:48)
[2021-02-04] MEDS ORDERED: propofoL 200 MG/20 ML VIAL IV ONE (09:48)
[2021-02-04] MEDS: INSULIN LISPRO 100 UNIT/ML SUBCUT SCH ×4 (10:20→22:19)
[2021-02-04] MEDS: CHOLECALCIFEROL 1,000 UNIT TABLET PO SCH (10:57)
[2021-02-04] MEDS: DOCUSATE SODIUM 100 MG CAPSULE PO SCH ×2 (10:58→20:53)
[2021-02-04] MEDS: GABAPENTIN 600 MG TABLET PO SCH ×3 (10:58→20:53)
[2021-02-04] MEDS: ASCORBIC ACID 500 MG TABLET PO SCH ×2 (10:58→20:53)
[2021-02-04] MEDS: PRIMIDONE 250 MG TABLET PO SCH ×2 (10:58→20:53)
[2021-02-04] MEDS: ZONISAMIDE 100 MG CAPSULE PO SCH ×3 (10:58→20:53)
[2021-02-04] MEDS: PANTOPRAZOLE 40 MG TABLET PO SCH (10:58)
[2021-02-04] MEDS: POTASSIUM CHLORIDE 20 MEQ TABLET PO SCH (11:07)
[2021-02-04] MEDS ORDERED: GLUCAGON 1 MG VIAL IM PRN (12:16)
[2021-02-04] MEDS ORDERED: DEXTROSE 50% 25 GM/50 ML VIAL IV PRN (12:16)
[2021-02-05] MEDS ORDERED: METOPROLOL TARTRATE 5 MG/5 ML VIAL IV ONE (00:25)
[2021-02-05] MEDS: ENOXAPARIN 100 MG/ML SYRINGE SUBCUT SCH ×2 (01:20→14:26)
[2021-02-05] MEDS: DILTIAZEM INJ 100 MG in SODIUM CHLORIDE 0.9% 100 ML IV SCH (01:58)
[2021-02-05 06:15] LABS: Basophils # 0.1 10*3/uL (0.0-0.2); Basophils % 0.3 % (0.0-0.8); Eosinophils # 0.4 10*3/uL (0.0-0.87); Eosinophils % 1.6 % (0.00-10.9); Hematocrit 30.3 VOL% (35.7-47.0); Hemoglobin 9.7 GM/DL (12.0-16.0); Immature Granulocytes % 0.4 %; Lymphocytes # 13.5 10*3/uL (1.4-4.0); Lymphocytes % 50.6 % (21.3-54.2); Mean Corpuscular Volume 104.8 FL (87-102); Mean Platelet Volume 10.8 FL (9.6-12.0); Monocytes % 16.3 % (1.7-12.7); Neutrophils % 30.8 % (38.7-73.9); Platelet Count 299 T/CUMM (130-400); Red Blood Count 2.89 MC/CUMM (3.8-5.5); Red Cell Distribution Width 13.2 % (9.3-17.3); White Blood Count 26.7 T/CUMM (4-12)
[2021-02-05 06:40] LABS: Eosinophils 1 % (0-10); Hypochromasia Slight; Lymphocytes 44 % (20-55); Platelet Estimate Normal; Segmented Neutrophils 45 % (50-85); Total Cells Counted 100
[2021-02-05] MEDS: ceFAZolin 2,000 MG/50 ML DUPLEX IV SCH ×3 (06:48→21:44)
[2021-02-05 08:03] LABS: Albumin 2.9 G/DL (3.4-5.0); Bilirubin,Total 0.6 MG/DL (0.20-1.00); Calcium 9.1 MG/DL (8.5-10.1); Osmolality,Calculated 283.3 MOS/KG (273-304); Potassium 3.5 MMOL/L (3.5-5.1)
[2021-02-05] MEDS ORDERED: AMIODARONE INJ 150 MG in DEXTROSE 5% 100 ML IV ONE (08:35)
[2021-02-05] MEDS ORDERED: POTASSIUM CHLORIDE 20 MEQ TABLET PO ONE (08:45)
[2021-02-05] MEDS ORDERED: AMIODARONE INJ 450 MG in DEXTROSE 5% 241 ML IV SCH (09:00)
[2021-02-05] MEDS ORDERED: ENOXAPARIN 100 MG/ML SYRINGE SUBCUT SCH (09:00)
[2021-02-05] MEDS: ZONISAMIDE 100 MG CAPSULE PO SCH ×3 (09:37→21:41)
[2021-02-05] MEDS: ASCORBIC ACID 500 MG TABLET PO SCH ×2 (09:37→21:41)
[2021-02-05] MEDS: POTASSIUM CHLORIDE 20 MEQ TABLET PO SCH (09:38)
[2021-02-05] MEDS: DOCUSATE SODIUM 100 MG CAPSULE PO SCH ×2 (09:38→21:55)
[2021-02-05] MEDS: GABAPENTIN 600 MG TABLET PO SCH ×3 (09:38→21:42)
[2021-02-05] MEDS: PANTOPRAZOLE 40 MG TABLET PO SCH (09:38)
[2021-02-05] MEDS: PRIMIDONE 250 MG TABLET PO SCH ×2 (09:38→21:42)
[2021-02-05] MEDS: CHOLECALCIFEROL 1,000 UNIT TABLET PO SCH (09:38)
[2021-02-05] MEDS: INSULIN LISPRO 100 UNIT/ML SUBCUT SCH ×4 (11:11→20:08)
[2021-02-05] MEDS: AMIODARONE INJ 450 MG in DEXTROSE 5% 241 ML IV SCH (17:27)
[2021-02-05] MEDS ORDERED: diphenhydrAMINE 2% CREAM 28 GM TUBE TOP PRN (18:28)
[2021-02-06] MEDS: DILTIAZEM INJ 100 MG in SODIUM CHLORIDE 0.9% 100 ML IV SCH (01:50)
[2021-02-06] MEDS: ENOXAPARIN 100 MG/ML SYRINGE SUBCUT SCH (01:55)
[2021-02-06] MEDS: AMIODARONE INJ 450 MG in DEXTROSE 5% 241 ML IV SCH (05:32)
[2021-02-06] MEDS: ceFAZolin 2,000 MG/50 ML DUPLEX IV SCH ×3 (06:27→22:30)
[2021-02-06] MEDS: CHOLECALCIFEROL 1,000 UNIT TABLET PO SCH (09:54)
[2021-02-06] MEDS: GABAPENTIN 600 MG TABLET PO SCH ×3 (09:54→21:32)
[2021-02-06] MEDS: ASCORBIC ACID 500 MG TABLET PO SCH ×2 (09:54→21:32)
[2021-02-06] MEDS: POTASSIUM CHLORIDE 20 MEQ TABLET PO SCH (09:54)
[2021-02-06] MEDS: ZONISAMIDE 100 MG CAPSULE PO SCH ×3 (09:54→21:32)
[2021-02-06] MEDS: PRIMIDONE 250 MG TABLET PO SCH ×2 (09:54→21:32)
[2021-02-06] MEDS: PANTOPRAZOLE 40 MG TABLET PO SCH (09:55)
[2021-02-06] MEDS: INSULIN LISPRO 100 UNIT/ML SUBCUT SCH ×4 (09:55→21:03)
[2021-02-06] MEDS: AMIODARONE 200 MG TABLET PO SCH ×2 (10:00→21:32)
[2021-02-06] MEDS: DOCUSATE SODIUM 100 MG CAPSULE PO SCH ×2 (10:24→21:33)
[2021-02-06 10:54] LABS: Calcium 8.4 MG/DL (8.5-10.1); Osmolality,Calculated 278.7 MOS/KG (273-304); Potassium 3.5 MMOL/L (3.5-5.1)
[2021-02-06] MEDS ORDERED: POTASSIUM CHLORIDE 20 MEQ TABLET PO ONE (11:23)
[2021-02-06] MEDS: APIXABAN 5 MG TABLET PO SCH (21:32)
[2021-02-07] MEDS: DILTIAZEM INJ 100 MG in SODIUM CHLORIDE 0.9% 100 ML IV SCH (00:54)
[2021-02-07 04:44] LABS: Calcium 8.7 MG/DL (8.5-10.1); Osmolality,Calculated 281.4 MOS/KG (273-304)
[2021-02-07] MEDS: ceFAZolin 2,000 MG/50 ML DUPLEX IV SCH (04:48)
[2021-02-07] MEDS: INSULIN LISPRO 100 UNIT/ML SUBCUT SCH (08:40)
[2021-02-07] MEDS: ASCORBIC ACID 500 MG TABLET PO SCH (10:44)
[2021-02-07] MEDS: GABAPENTIN 600 MG TABLET PO SCH (10:45)
[2021-02-07] MEDS: PRIMIDONE 250 MG TABLET PO SCH (10:45)
[2021-02-07] MEDS: AMIODARONE 200 MG TABLET PO SCH (10:46)
[2021-02-07] MEDS: PANTOPRAZOLE 40 MG TABLET PO SCH (10:47)
[2021-02-07] MEDS: CHOLECALCIFEROL 1,000 UNIT TABLET PO SCH (10:47)
[2021-02-07] MEDS: POTASSIUM CHLORIDE 20 MEQ TABLET PO SCH (10:47)
[2021-02-07] MEDS: ZONISAMIDE 100 MG CAPSULE PO SCH (10:47)
[2021-02-07] MEDS: APIXABAN 5 MG TABLET PO SCH (10:48)
[2021-02-07] MEDS: DOCUSATE SODIUM 100 MG CAPSULE PO SCH ×2 (10:48→10:50)
[2021-02-07 12:49] VITALS: BP 166/88
== END 2021-02-07 14:46 | disposition swing bed (61) | DRG 481 ==
LOC: N.ED 09:31 → SUATTDRO 11:20 → N.EDINP 11:20 → N.3E 13:16 → N.TELES 02-05 01:31
PROVIDERS: ADMIT Internal Medicine; ATTEND Internal Medicine